=== PATIENT | male | born 1980 | race Caucasian/White ===

== ENCOUNTER 2020-11-30 09:39 | Emergency (ER) | payer OTHER, SELFPAY ==
--- NOTE | ~2020-11-30 | XR_ITS ---
EXAMINATION: XR CHEST CLINICAL INFORMATION: Cough. COMPARISON: Most recent chest radiograph dated 06/30/2018. TECHNIQUE: Frontal view of the chest was obtained. FINDINGS: The lungs are clear. The cardiomediastinal silhouette is normal in size. There is no pleural effusion or pneumothorax. No acute osseous abnormality. XR/XR chest 1V IMPRESSION: No acute cardiopulmonary findings.
[2020-11-30 11:00] VITALS: BP 121/84; PULSE 77; RESP 18; TEMP 36.9; O2SAT 99; BMI 29.0
--- NOTE | 2020-11-30 11:34 | ED.GENADULT ---
HPI - General Adult General Chief complaint: General Medical Stated complaint: fevers chill covid positive Time Seen by Provider: 11/30/20 11:34 History of Present Illness HPI narrative: Patient tested positive for COVID 2 days ago and comes here is he increased body aches and a mild cough, as well as some fatigue No difficulty breathing no headache no neck pain no chest pain no shortness of breath Related Data Allergies Allergy/AdvReac Type Severity Reaction Status Date / Time No Known Allergies Allergy Unverified 01/02/20 17:05 Review of Systems Review of Systems: Positive for body aches cough and fatigue Negatives are no fever no chills no dizziness no weakness no fainting no feeling faint no headache no neck pain no stiff neck no chest pain no shortness of breath no abdominal pain no nausea vomiting or diarrhea no dysuria no skin rash Yes all other systems are reviewed and are negative [facility] Past Medical History Source: nursing notes reviewed Medical History (Updated 11/30/20 @ 12:13 by JELANI Kathleen) No known health problems Social History Social History Advance Directives: No Advance Directives Information Provided: No Physical Exam Vital Signs: Vital Signs: Last Vital Signs Temp 98.5 F 11/30/20 11:00 Pulse 77 11/30/20 11:00 Resp 18 11/30/20 11:00 BP 121/84 11/30/20 11:00 Pulse Ox 99 11/30/20 11:00 Body Mass Index 29.0 General appearance no acute distress The ears are clear with no redness of tympanic membrane or narrowing of canal Sinuses nontender Pharynx there is mild pharyngeal erythema but no exudate, voice is normal there is no swelling there is no drooling, well-hydrated mucous membranes The neck is supple Chest clear to auscultation bilateral Heart no murmur Abdomen soft nontender Extremities full range of motion x4 Skin no rash Course Course Course Narrative: COVID testing was negative, strep test was negative and chest x-ray was negative, patient is well-appearing with normal vitals and is discharged and advised to stay out of work until symptoms are better and COVID testing is negative Discharge Plan Discharge Clinical Impression: COVID-19 Patient Disposition: Home, Self-Care Additional Instructions: You tested positive for COVID-19 which is very contagious Best plan is keep a distance from other people, wear mask any time her around other people You will be off work until all symptoms are gone and a repeat test is negative Return to the ER any time any worse condition or any concerns chest x-ray was normal Stand Alone Forms: Work/School Release Interventions: ED Discharge Assessment Last Done: 11/30/20 12:22 Discharge Date/Time: 11/30/20 12:23
== END 2020-11-30 12:23 | disposition home or self-care (01) ==
PROVIDERS: Emergency Provider Internal Medicine
DX: U07.1 COVID-19 (principal); R50.9 Fever, unspecified
CPT/HCPCS: 71045; 99283

== ENCOUNTER 2023-08-09 09:57 | Emergency (ER) | payer OTHER, SELFPAY ==
--- NOTE | ~2023-08-09 | XR_ITS ---
EXAMINATION: XR LUMBOSACRAL SPINE CLINICAL INFORMATION: Low back pain. COMPARISON: 03/07/2018 TECHNIQUE: Three views of the lumbosacral spine. FINDINGS: There are 5 nonrib-bearing lumbar vertebral bodies. Relative straightening of the lumbar lordosis. There is 5 mm retrolisthesis of L5 on S1 similar to prior. There is 3 mm retrolisthesis of L4 on L5. Vertebral body heights are maintained. Mild intervertebral disc space narrowing at L5-S1. Sacroiliac joints are intact. Scattered pelvic phleboliths. XR/XR lumbar spine 2-3V IMPRESSION: Mild degenerative disc disease at L5-S1.
[2023-08-09 10:17] VITALS: BP 120/75; PULSE 88; RESP 18; TEMP 36.2; O2SAT 100; BMI 31.5
--- NOTE | 2023-08-09 10:43 | ED_ITS ---
HPI - General Adult General Chief complaint: Extremity Injury, Lower Stated complaint: Low Back Injury 08/07/23 Time Seen by Provider: 08/09/23 10:42 Source: patient Mode of arrival: ambulatory Limitations: no limitations History of Present Illness HPI narrative: Patient is a 42 year old assigned male at with no reported medical history presenting to the emergency department today with low back pain. Patient states that he was at work, lifted something heavy, and now has low back pain. Patient states that when the incident occurred, he felt and heard a pop in his back. Patient denies any dizziness, lightheadedness, abdominal pain, nausea, vomiting, fever, chills, blurry vision, double vision, loss of vision, chest pain, difficulty breathing, shortness of breath, night sweats, pain with urination, increased urinary frequency, increased urinary urgency, blood in his urine or stool, syncope or a near syncopal episode, bowel incontinence, bladder incontinence, bowel retention, bladder retention, or any other complaints at this time. Location: back Radiation: non-radiation Relieving factors: none Exacerbating factors: movement Associated symptoms: denies other symptoms Treatments prior to arrival: none Related Data Previous Rx's ?Medication ?Instructions ?Recorded cyclobenzaprine 5 mg tablet 5 mg PO TID PRN back pain 7 days 08/09/23 #21 tabs prednisone 20 mg tablet 20 mg PO DAILY 7 days #7 tabs 08/09/23 Allergies Allergy/AdvReac Type Severity Reaction Status Date / Time No Known Allergies Allergy Verified 08/09/23 10:18 Review of Systems Constitutional: Constitutional: Reports no additional constitutional complaints, Denies chills, Denies fever(s) and Denies night sweats Eyes: Eyes: Reports no additional eye complaints, Denies blurry vision, Denies change in vision, Denies diplopia, Denies eye discharge, Denies loss of vision and Denies eye pain ENT: Denies dizziness Cardiovascular: Cardiovascular: Reports no additional cardiovascular complaints, Denies chest pain, Denies lightheadedness, Denies Loss of Consciousness and Denies dyspnea Respiratory: Respiratory: Reports no additional respiratory complaints and Denies dyspnea Gastrointestinal: Gastrointestinal: Reports no additional gastrointestinal complaints, Denies abdominal pain, Denies melena, Denies hematochezia, Denies change in bowel habits and Denies change in stool character Genitourinary: Genitourinary: Reports no additional male genitourinary complaints, Denies hematuria, Denies oliguria, Denies difficulty urinating, Denies dysuria, Denies urinary frequency, Denies urinary hesitancy, Denies urinary incontinence and Denies urinary urgency Musculoskeletal: Musculoskeletal: Reports no additional musculoskeletal complaints, Reports back pain, Denies numbness and Denies tingling Neurologic: Denies dizziness, Denies loss of vision, Denies numbness and Denies tingling Psychiatric: Psychiatric: Reports no additional psychiatric complaints Endocrine: Endocrine: Reports no additional endocrine complaints Hematologic/Lymphatic: Hematologic/Lymphatic: Reports no additional hematologic/lymphatic complaints Allergic/Immunologic: Allergic/Immunologic: Reports no additional allergic/immunologic complaints [facility] Past Medical History Attestation statement: The following information was validated with the patient. Source: old records reviewed and nursing notes reviewed Medical History No known health problems Social History Social History Advance Directives: No Advance Directives Information Provided: No Do you have a plan to hurt others: No Plan Physical Exam ED Vital Signs: Vital Signs - 24 hr 08/09/23 10:17 08/09/23 11:06 08/09/23 11:30 Temperature 97.1 F 99.0 F 99.0 F Pulse Rate 88 81 81 Respiratory Rate 18 19 19 Blood Pressure 120/75 119/69 119/69 Pulse Oximetry 100 98 98 Oxygen Delivery Method Room Air Room Air Room Air BMI result Body Mass Index 31.5 Const General: cooperative, no acute distress, alert and awake Nutritional Appearance: well nourished Orientation/consciousness: patient oriented x3 Limitations: no limitations [facility] Head: Yes normal to inspection and Yes atraumatic Ears: hearing grossly normal bilaterally and external ears normal General nose exam: Normal external nose present, no nasal discharge noted and no epistaxis Face and sinus: Yes normal facial exam, No abrasion and No laceration Mouth: Normal oral and palatal mucosa present, no drooling and no muffled voice Eyes General: appearance normal, both eyes and all related structures Periorbital: periorbital findings normal Eyelids: Yes eyelids normal Conjunctivae: conjunctivae normal Pupils: Equal, round and reactive pupils present EOM: EOMs intact bilaterally Neck Neck: Yes normal visual inspection, Yes full ROM and Yes no lymphadenopathy Chest Chest palpation & inspection: normal inspection of the chest Resp Effort & Inspection: normal respiratory effort and able to speak in complete sentences GI Inspection: Yes normal to inspection General: Yes no CVA tenderness Back/Spine/Pelvis Back: no CVA tenderness Cervical Spine: normal cervical lordosis and cervical ROM normal Thoracic/Lumbar Spine: thoracic and lumbar spine normal to inspection Pelvis: no pain with anterior-posterior compression Neuro General: patient oriented x3 and moves all extremities Cranial nerves: Yes Equal, round and reactive pupils present Cognition (Neuro): normal cognition Motor exam (neuro): 5/5 motor strength present throughout Sensory Exam: Normal double simultaneous stimulation for sensation Coordination: [id number] test normal Extrem General: Yes normal to inspection, Yes full ROM and Yes capillary refill normal Psych Appearance: grossly normal Mental Status: mental status grossly normal Affect: normal affect Attitude: cooperative Thought process: Normal thought process present Thought content: Normal thought content present Insight: Good insight present (Psych) Medications Administered Discontinued Medications Generic Name Dose Route Start Last Admin Trade Name Mina PRN Reason Stop Dose Admin Cyclobenzaprine HCl 5 mg 08/09/23 11:19 08/09/23 11:24 Cyclobenzaprine Hcl 5 Mg Tablet PO 08/09/23 11:20 5 mg ONCE ONE Administration Ketorolac Tromethamine 15 mg 08/09/23 11:19 08/09/23 11:24 Ketorolac Tromethamine 15 Mg/Ml Vial IM 08/09/23 11:20 15 mg ONCE ONE Administration Medical Decision Making Medical Decision Making [facility] Narrative: Patient is a 42 year old assigned male at with no reported medical history presenting to the emergency department today with low back pain after lifting something heavy at work. Patient's physical exam was unremarkable. Patient's lumbar x-ray showed no acute process. I explained my physical exam findings as well as all test results to the patient. I answered all questions asked by the patient. I stressed the importance of the patient taking his medication as prescribed. I stressed the importance of the patient following up with his primary care provider and given this was a work place injury, work connection. I stressed the importance of the patient returning to the emergency department immediately if his symptoms were to worsen or if he were to develop any dizziness, shortness of breath, difficulty breathing, chest pain, blurry vision, loss of vision, nausea, vomiting, abdominal pain, fever, chills, back pain, or any other complaints. Patient verbalized agreement and understanding with this treatment plan and discharge. Differential Diagnosis Differential Diagnoses: The differential diagnosis associated with the presentation includes Low back pain Low back strain Herniated disc Disc disease Low back sprain Admission/Observation Consideration of admission/observation: Escalation of care including admission/observation considered Patient would have been admitted to the hospital had his work up had any findings where hospital admission was appropriate and his clinical presentation warranted hospital admission. Independent Interpretation I performed an independent interpretation of an: Plain X-Ray Interpretation: My interpretation is in agreement with the radiologist's impression of this imaging study. ------- EXAMINATION: XR LUMBOSACRAL SPINE CLINICAL INFORMATION: Low back pain. COMPARISON: 03/07/2018 TECHNIQUE: Three views of the lumbosacral spine. FINDINGS: There are 5 nonrib-bearing lumbar vertebral bodies. Relative straightening of the lumbar lordosis. There is 5 mm retrolisthesis of L5 on S1 similar to prior. There is 3 mm retrolisthesis of L4 on L5. Vertebral body heights are maintained. Mild intervertebral disc space narrowing at L5-S1. Sacroiliac joints are intact. Scattered pelvic phleboliths. XR/XR lumbar spine 2-3V IMPRESSION: Mild degenerative disc disease at L5-S1. Dictated By: Aubrie Weston MD Signed By: Electronically signed by Aubrie Weston MD 08/09/23 1108 Radiology Impression Discussion of test interpretation with radiology: I have reviewed the radiologist's reading. Prescription Management I considered prescription management with: Pain Medication (patient prescribed pain medication) Discharge Plan Discharge Clinical Impression: Low back pain Patient Disposition: Home, Self-Care Instructions: Back Pain (ED) Additional Instructions: Follow up with your primary care provider. Given this was a work place injury, follow up with work connection. If the pain persists >1 month, follow up with a technical training specialist. Return to the emergency department immediately if your symptoms worsen or if you develop any dizziness, shortness of breath, difficulty breathing, chest pain, blurry vision, loss of vision, nausea, vomiting, abdo calderon pain, fever, chills, back pain, or any other complaints. Prescriptions: New cyclobenzaprine 5 mg tablet 5 mg PO TID PRN (Reason: back pain) 7 Days Qty: 21 0RF prednisone 20 mg tablet 20 mg PO DAILY 7 Days Qty: 7 0RF Referrals: [facility] Family Medicine [Provider Group] (Call to establish and follow up with a primary care provider. If you already have a primary care provider, please follow up with them.) [facility] [Provider Group] [facility] [Provider Group] [facility] [Provider Group] (Call to establish and follow up with a technical training specialist if your pain lasts >1 month.) [facility] [Provider Group] (Call to establish and follow up with work connection given this was a work place injury.) Stand Alone Forms: Work/School Release Interventions: ED Discharge Assessment Last Done: 08/09/23 11:30 Discharge Date/Time: 08/09/23 11:32 Print Language: Slovak
[2023-08-09 11:06] VITALS: BP 119/69; PULSE 81; RESP 19; TEMP 37.2; O2SAT 98
[2023-08-09] MEDS: Ketorolac Tromethamine 15 MG/ML VIAL IM (11:24)
[2023-08-09] MEDS: Cyclobenzaprine HCl 5 MG TABLET PO (11:24)
[2023-08-09 11:30] VITALS: BP 119/69; PULSE 81; RESP 19; TEMP 37.2; O2SAT 98
== END 2023-08-09 11:32 | disposition home or self-care (01) ==
PROVIDERS: Emergency Provider Emergency Medicine
DX: M54.50 Low back pain, unspecified (principal)
CPT/HCPCS: 72100; 96372; 99283; 99284; J1885

== ENCOUNTER 2024-12-06 06:33 | Emergency (ER) | payer OTHER, SELFPAY ==
--- NOTE | ~2024-12-06 | CT_ITS ---
EXAMINATION: CT ABDOMEN AND PELVIS WITH CONTRAST CLINICAL INFORMATION: Left flank pain. COMPARISON: October 20, 2018. TECHNIQUE: Multidetector volumetric images were obtained from the superior aspect of the liver through the pubic symphysis following administration 85 mL of Omnipaque 350 intravenous contrast. Sagittal and coronal reformatted images were obtained on the technologist's workstation. Oral contrast: No This CT examination was performed using dose optimization techniques as appropriate, variously including the following: *Automated exposure control *Adjustment of mA and/or kV according to patient size (this includes techniques or standardized protocols for targeted exams where dose is matched to indication/reason for exam; i.e. extremities or head) *Use of iterative reconstruction technique. DLP: 526 mGy centimeter. FINDINGS: LUNG BASES: Pulmonary patchy groundglass in the periphery of the lower lung lobes. LIVER, GALLBLADDER, AND BILIARY TREE: Liver measures 18 cm. Decreased enhancement near the falciform ligament likely focal fatty infiltration. Punctate calcifications in the periphery of the right hepatic lobe. 2 mm hypodensity in the dome left hepatic lobe too small to be fully characterized. No pericholecystic fluid collection or gallbladder wall thickening. Gallbladder is nondistended. No intrahepatic or extrahepatic biliary ductal dilatation. PANCREAS: No focal mass. No peripancreatic fluid collection. No main pancreatic ductal dilatation. SPLEEN: 8 cm. No focal mass. ADRENAL GLANDS: No nodular lesions. KIDNEYS AND URETERS: Right kidney: Nonobstructing less than 2 mm calculi in the pelvicalyceal system. Subcentimeter cyst throughout the renal cortex. No enhancing mass. No hydronephrosis. Normal enhancement pattern of the renal parenchyma. Left kidney: There is a 2.5 x 2.4 x 3.6 cm heterogeneous mixed density attenuation abnormality in the upper pole which measures 61 Hounsfield units. There is a 1.7 cm hypodensity at the corticomedullary junction of the lateral aspect midportion which measures 40 Hounsfield units. There are a few less than 1 mm nonobstructing calculi in the pelvicalyceal system. There are other less than 1 cm fluid density lesions in the midportion upper pole and lower pole. No hydronephrosis. BLADDER: Fluid-filled nearly collapsed with questionable wall thickening. GASTROINTESTINAL TRACT: Abundant stool throughout the large intestine. No intestinal obstruction pattern. No ascites. No pneumoperitoneum. Appendix is normal. No pneumatosis intestinalis. ABDOMINAL WALL: Small fat-containing umbilical hernia. LYMPH NODES: No mesenteric or retroperitoneal lymphadenopathy. VASCULAR: The main renal vessels are patent. No aneurysm or dissection abdominal aorta. Mixed plaques in the distal abdominal aorta wall. Mixed plaques in the femoral arteries bilaterally. PELVIC VISCERA: Not enlarged. OSSEOUS STRUCTURES: There is a 1 cm lytic lesion right posterior iliac bone and bone marrow inhomogeneity in the bony pelvis. Multilevel marginal osteophyte formation and syndesmophyte formation and decreased intervertebral disc height in the lower thoracic spine and lower lumbar spine. There is a grade 1 retrolisthesis L4-5 and L5-S1 likely degenerative in nature. No acute fracture in the bony pelvis or the coxofemoral joints. CT/CT abdomen pelvis w IV con IMPRESSION: 3.6 cm, heterogeneous enhancing, poorly marginated, mixed density mass at the corticomedullary junction, upper pole left kidney related to the known renal mass. Probable hemorrhagic components/recently bled lesion. No lymphadenopathy. No perinephric/pararenal compartment involvement. No gross vascular involvement. Bilateral nonobstructing nephrolithiasis. 1.7 cm complex cystic lesion midportion of the left kidney. Bilateral renal cysts. Lytic lesion posterior right iliac bone. Fleischner guidelines were followed. Electronically signed by: Andrew Lewis MD 12/06/2024 10:58 AM EDT
[2024-12-06 06:49] VITALS: BP 111/65; PULSE 76; RESP 16; TEMP 36.8; O2SAT 96; BMI 30.1
--- NOTE | 2024-12-06 06:55 | PC.NURSE ---
Pt roomed changed and placed on 1/2 monitor- VSS NAD. States urine normal with no blood or discoloration or urinary SX. Has not taken anything for pain.
--- NOTE | 2024-12-06 07:18 | ED_ITS ---
HPI - General Adult General Chief complaint: Back Pain/Injury Stated complaint: kidney pain Time Seen by Provider: 12/06/24 07:18 History of Present Illness ED Provider: Ismael HORNE narrative: The patient is a 43-year-old male who was diagnosed with a mass in his left kidney thought to be kidney cancer 3 months ago. He had a CT scan at [facility] on 09/05/2024 showing a 3.5 cm enhancing mass within the upper pole cortex of the left kidney suspicious for neoplasia. He has been working with Dr. Ivan of urology in [place] and is scheduled to have surgery in 2 weeks to remove the tumor. The patient works and does a fair amount of lifting at work. Yesterday after work he noticed pain in his left lower back. He says that he has a history of sciatica and he did not feel that this pain was similar to his sciatica pain. He says he also had chills yesterday although no definite fever. No definite sweats. No vomiting. This is not a pain he has experienced before he says. The pain is worse with movements but the patient feels this is different from what he considers typical muscular back pain. Related Data Previous Rx's ?Medication ?Instructions ?Recorded cyclobenzaprine 5 mg tablet 5 mg PO TID PRN back pain 7 days 08/09/23 #21 tabs prednisone 20 mg tablet 20 mg PO DAILY 7 days #7 tab s 08/09/23 ondansetron 4 mg disintegrating 4 mg PO Q6H PRN nausea and 12/06/24 tablet vomiting #10 tabs oxycodone 5 mg tablet 5 mg PO Q6H PRN pain #14 tab s 12/06/24 polyethylene glycol 3350 17 17 g PO DAILY #238 grams 0 12/06/24 gram/dose oral powder (Miralax) Allergies Allergy/AdvReac Type Severity Reaction Status Date / Time No Known Allergies Allergy Verified 12/06/24 06:51 Review of Systems 2 Review of Systems: Yes all other systems are reviewed and are negative [facility] Past Medical History Medical History No known health problems Social History Social History Substance Use Type: Crack/Cocaine Physical Exam ED Vital Signs: Vital Signs - 24 hr 08/22/25 06:49 12/06/24 07:49 12/06/24 08:00 Temperature 98.2 F 98.5 F Pulse Rate 76 72 Respiratory Rate 16 16 16 Blood Pressure 111/65 100/60 Pulse Oximetry 96 100 Oxygen Delivery Method Room Air Room Air 12/06/24 10:00 12/06/24 12:00 12/06/24 12:32 Temperature 98.5 F 98.4 F 98.4 F Pulse Rate 72 82 76 Respiratory Rate 15 16 16 Blood Pressure 118/74 112/70 120/81 Pulse Oximetry 100 98 98 Oxygen Delivery Method Room Air Room Air Room Air BMI result Body Mass Index 30.1 Const Other: The patient is a 43-year-old male who was awake and alert, pleasant and cooperative. He looks mildly uncomfortable but not in acute distress. Orientation/consciousness: patient oriented x3 HENMT Other: The face is symmetrical. ?Mucous membranes moist. Eyes Other: Pupils are round equal, conjunctivae are clear, extraocular movements intact Neck Neck: Yes normal visual inspection and Yes full ROM Resp Effort & Inspection: normal respiratory effort Auscultation: clear to auscultation bilaterally Cardio Rate: regular rate Rhythm: regular rhythm Heart sounds: S1 normal heart sound present and S2 normal heart sound present GI Other: The abdomen is soft and nontender Back/Spine/Pelvis Other: There seems to be some muscular tenderness to the lower back. No definite CVA percussion tenderness. Skin Other: The skin is dry and unremarkable Neuro General: patient oriented x3, gait normal, tone normal, moves all extremities, no focal motor deficits and CN's II-XI intact bilaterally Extrem Other: There is no calf swelling or tenderness. No asymmetry. No peripheral edema. Medications Administered Discontinued Medications Generic Name Dose Route Start Last Admin Trade Name Freq PRN Reason Stop Dose Admin Sodium Chloride 1,000 mls @ 999 mls/hr 12/06/24 07:30 12/06/24 09:35 Ns IV 12/06/24 08:30 Infused .Q1H1M CHANDU Infusion Acetaminophen 1,000 mg in 100 mls @ 400 mls/hr 12/06/24 07:28 12/06/24 08:22 Ofirmev IV 12/06/24 07:42 Infused ONCE ONE Infusion Iohexol 100 ml 12/06/24 10:01 12/06/24 10:01 Iohexol 350 Mg/Ml 100 Ml Infus..Btl IV 12/06/24 10:02 85 ml ONCE ONE Administration Morphine Sulfate 4 mg 12/06/24 07:28 12/06/24 07:49 Morphine Sulfate 4 Mg/Ml Cartridge IVPUSH 12/06/24 07:29 4 mg ONCE ONE Administration Protocol Ondansetron HCl 4 mg 12/06/24 07:28 12/06/24 07:48 Ondansetron Hcl 4 Mg/2 Ml Vial IVPUSH 12/06/24 07:29 4 mg ONCE ONE Administration Oxycodone HCl 5 mg 12/06/24 12:14 12/06/24 12:27 Oxycodone Hcl Immed Release 5 Mg Tablet PO 12/06/24 12:15 5 mg ONCE ONE Administration Medical Decision Making Medical Decision Making [facility] Narrative: The patient is a very pleasant 43-year-old male who was recently found to have a left renal tumor considered to be malignant. He is scheduled to have surgery in under 2 weeks at [facility]. He presents today with back pain that started yesterday after work. The patient does not appear toxic. He is neurologically intact. There was no sign of urinary infection or other infectious process associated with this pain. A CT with IV contrast was done today that again demonstrates the tumor. There is a possibility that there might be some hemorrhage within the tumor but we do not have the old imaging to compare. No other definite acute findings are found in the ER today. I do not have an indication for hospitalizing the patient. The patient will be given oxycodone for pain. He was given a copy of the disc of his CAT scan. He will be discharged to follow up with his urologist next week to discuss whether this new pain will affect anything to do with his planned surgery. Lab Data 12/06/24 07:51 12/06/24 07:51 Labs: Lab Results 12/06/24 12/06/24 Range/Units 07:51 09:09 WBC 10.9 H (4.8-10.8) X10*3/uL RBC 4.08 L (4.60-5.80) X10*6/uL Hgb 12.7 L (14.0-18.0) g/dl Hct 38.3 L (42.0-52.0) % MCV 93.9 (80.0-98.0) fL MCH 31.1 (27.0-33.0) pg MCHC 33.2 (31.0-36.0) g/dl RDW 13.9 (11.0-16.0) % Plt Count 275 (160-400) X10*3/uL MPV 9.4 (9.4-12.4) fL Immature Gran % (Auto) 0.4 (0.0-0.4) % Neut % (Auto) 66.5 (45-73) % Lymph % (Auto) 21.1 (20-40) % [place] % (Auto) 8.7 (2-11) % Eos % (Auto) 2.4 (0-4) % Baso % (Auto) 0.9 (0-2) % Lymph # (Auto) 2.3 (1.2-4.9) X10*3/uL [place] # (Auto) 1.0 (0.1-1.2) X10*3/uL Eos # (Auto) 0.3 (0.0-0.4) X10*3/uL Baso # (Auto) 0.1 (0.0-0.2) X10*3/uL Abs Immat Gran (auto) 0.04 H (0.00-0.03) X10*3/uL Absolute Neuts (auto) 7.2 (2.0-8.3) x10*3/uL Absolute Nucleated RBC 0.000 (0.0-0.012) X10*3/uL Nucleated RBC % (auto) 0.0 (0.0-0.2) /100WBC Sodium 142 (135-145) mmol/L Potassium 4.3 (3.3-5.1) mmol/L Chloride 107 (96-108) mmol/L Carbon Dioxide 28 (22-29) mmol/L Anion Gap 11 L (12-20) BUN 11 (9-16) mg/dL Creatinine 1.09 (0.5-1.4) mg/dL Estim Creat Clear Calc 90.2 Estimated GFR > 60 Random Glucose 60 (60-115) mg/dL Calcium 9.2 (8.4-10.2) mg/dL Total Bilirubin 0.3 (0.0-1.0) mg/dL Direct Bilirubin 0.1 (0.0-0.5) mg/dL AST 21 (5-37) U/L ALT 14 (0-40) U/L Alkaline Phosphatase 55 (39-117) U/L C-Reactive Protein < 0.10 (< or = 0.50) mg/dL Total Protein 6.6 (6.5-8.0) g/dL Albumin 4.0 (3.5-5.0) g/dL Lipase 211 H (8-78) U/L Urine Color Yellow Urine Appearance Clear Urine pH 7.5 (5.0-9.0) Ur Specific [place] 1.015 (1.005-1.025) Urine Protein Negative (Neg-Trace) mg/dL Urine Glucose (UA) Negative (Negative) mg/dL Urine Ketones Negative (Negative) mg/dL Urine Blood Small (1+) H (Negative) Urine Nitrite Negative (Negative) Ur Leukocyte Esterase Negative (Negative) Urine RBC 6-10 H (0-2) /HPF Urine WBC 0-5 (0-5) /HPF Ur Squamous Epith Cells 0-2 (0-2) /HPF Urine Bacteria None Seen (None Seen) Hyaline Casts 0-2 (0-2) /LPF Discharge Plan Discharge Clinical Impression: Acute left-sided back pain, Neoplasm of left kidney Patient Disposition: Home, Self-Care Additional Instructions: Your evaluation in the emergency room today shows no sign of infection. The CAT scan of your abdomen and pelvis shows that there might has been some bleeding within the tumor in your left kidney but it is not showing any other concerning findings. I have sent a prescription for the medication oxycodone which you may use as needed for pain. You may also use [id number] acetaminophen (Tylenol). Additionally I have sent a prescription for the nausea medication ondansetron. You may use this if you feel nausea. Additionally I have sent a prescription for polyethylene glycol (also known as MiraLax). I would recommend taking a dose of the polyethylene glycol every day to help soften your stools. This is especially important if you will be taking oxycodone for pain because oxycodone can be constipating. You has been given a disc of your CAT scan. Please contact Dr. Ivan and let him know you were having this pain. My hope is that he will be able to get you seen before the surgery to compare the CAT scans and make sure he feels comfortable with the current plan. Return to the emergency room if significantly worse or follow up at the [facility] Emergency room instead. Prescriptions: New ondansetron 4 mg tablet,disintegrating 4 mg PO Q6H PRN (Reason: nausea and vomiting) Qty: 10 0RF oxycodone 5 mg tablet 5 mg PO Q6H PRN (Reason: pain) Qty: 14 0RF Rx Instructions: Partial Fill upon patient request. polyethylene glycol 3350 [Miralax] 17 gram/dose powder 17 g PO DAILY Qty: 238 0RF No Action cyclobenzaprine 5 mg tablet 5 mg PO TID PRN (Reason: back pain) 7 Days Qty: 21 0RF prednisone 20 mg tablet 20 mg PO DAILY 7 Days Qty: 7 0RF Referrals: Song Ivan MD [Physician, Urology] Stand Alone Forms: Work/School Release Interventions: ED Discharge Assessment Last Done: 12/06/24 12:32 Discharge Date/Time: 12/06/24 12:33 Print Language: Persian
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
[2024-12-06 07:49] VITALS: RESP 16
[2024-12-06 07:55] LABS: MANUAL DIFF FLAG NO
[2024-12-06 07:57] LABS: Hematocrit 38.3 % (42.0-52.0); Hemoglobin 12.7 g/dl (14.0-18.0); Imm Gran Abs Auto 0.04 X10*3/uL (0.00-0.03); Imm Gran Pct Auto 0.4 % (0.0-0.4); Lymphocytes Absolute Auto 2.3 X10*3/uL (1.2-4.9); Mean Corpuscular HGB Conc 33.2 g/dl (31.0-36.0); Mean Corpuscular Hemoglobin 31.1 pg (27.0-33.0); Mean Corpuscular Volume 93.9 fL (80.0-98.0); NRBC Abs Auto 0.000 X10*3/uL (0.0-0.012); NRBC Pct Auto 0.0 /100WBC (0.0-0.2); Platelet Count 275 X10*3/uL (160-400); Red Blood Count 4.08 X10*6/uL (4.60-5.80); White Blood Count 10.9 X10*3/uL (4.8-10.8)
[2024-12-06 08:00] VITALS: BP 100/60; PULSE 72; RESP 16; TEMP 36.9; O2SAT 100
[2024-12-06 08:12] LABS: Alanine Aminotransferase 14 U/L (0-40); Albumin Level 4.0 g/dL (3.5-5.0); Alkaline Phosphatase 55 U/L (39-117); Anion Gap 11 (12-20); Aspartate Amino Transferase 21 U/L (5-37); Blood Urea Nitrogen 11 mg/dL (9-16); Calcium 9.2 mg/dL (8.4-10.2); Carbon Dioxide 28 mmol/L (22-29); Chloride 107 mmol/L (96-108); Creatinine Clr Calc Pharmacy 90.2; Estimated Glomerular Filt Rate > 60; Lipase 211 U/L (8-78); Potassium 4.3 mmol/L (3.3-5.1); Sodium 142 mmol/L (135-145); Total Protein 6.6 g/dL (6.5-8.0)
--- NOTE | 2024-12-06 09:18 | PC.NURSE ---
Provider in to examine pt FB removal.
[2024-12-06 09:19] LABS: Appearance Urine Clear; Glucose Urine UA Negative (Negative); PH 7.5 (5.0-9.0); Specific Gravity - Urine 1.015 (1.005-1.025); UMIC TRIGGER UACC YES
[2024-12-06 10:00] VITALS: BP 118/74; PULSE 72; RESP 15; TEMP 36.9; O2SAT 100
[2024-12-06] MEDS: iohexoL 350 MG/ML 100 ML INFUS..BTL IV (10:01)
[2024-12-06 12:00] VITALS: BP 112/70; PULSE 82; RESP 16; TEMP 36.9; O2SAT 98
[2024-12-06] MEDS: oxyCODONE HCl Immed Release 5 MG TABLET PO (12:27)
[2024-12-06 12:32] VITALS: BP 120/81; PULSE 76; RESP 16; TEMP 36.9; O2SAT 98
== END 2024-12-06 12:33 | disposition home or self-care (01) ==
PROVIDERS: Emergency Provider Emergency Medicine; PCP Family Medicine
DX: M54.9 Dorsalgia, unspecified (principal); D49.512 Neoplasm of unspecified behavior of left kidney
CPT/HCPCS: 36415; 74177; 80048; 80076; 81001; 83690; 85025; 86140; 96361; 96374; 96375; 99284; J0131; J2270; J2405; Q9967

== ENCOUNTER → 2024-12-06 09:27 | Outpatient (BNV) | payer OTHER, SELFPAY | PROVIDERS: Emergency Provider Emergency Medicine; PCP Family Medicine; Visit Provider Radiology Diagnostic Radiology | DX: N20.0 Calculus of kidney (principal); N28.1 Cyst of kidney, acquired; M89.9 Disorder of bone, unspecified | CPT/HCPCS: 74177 ==

== ENCOUNTER 2025-01-31 20:52 | Emergency (ER) | payer OTHER, SELFPAY ==
--- NOTE | ~2025-01-31 | US_ITS ---
CLINICAL HISTORY: left side pain r o torsion US Scrotum with Doppler Comparison: CT/REG/SR - CT ABDOMEN PELVIS WO IV CON - 01/31/25 23:13 EDT Findings: Right testicle normal echotexture, measuring 5.0 x 2.5 x 4.1 cm. Left testicle normal echotexture, measuring 5.2 x 2.6 x 3.1 cm. Color Doppler and arterial/venous spectral tracings of both testicles within normal limits. Normal epididymides. No significant hydrocele or varicocele identified IMPRESSION: 1. No acute abnormality identified. Negative for testicular torsion. This document has been electronically signed by: Rene Haines MD on 02/01/2025 00:35:55
--- NOTE | ~2025-01-31 | CT_ITS ---
CLINICAL HISTORY: left flank pain CT abdomen and pelvis without contrast Comparison: CT/REG/SR - CT ABDOMEN PELVIS WITH IV CONTRAST - 12/06/24 09:48 EDT Findings: CT abdomen: Minor linear atelectasis within the lower lobes bilaterally. No focal areas of consolidation. No pleural effusion or pneumothorax. No acute bony abnormality. Unchanged 4 mm calcification within the superior right lobe of the liver. Unenhanced liver is otherwise unremarkable. Unenhanced spleen is unremarkable. No discrete pancreatic lesion identified on the unenhanced exam. Gallbladder is contracted. Adrenal glands are unremarkable. Mild left hydronephrosis with left perinephric stranding. Curvilinear hyperdensity along the lateral aspect of the upper pole of the left kidney suggesting prior surgery and partial nephrectomy. No stones are seen within the left ureter. There are several vascular calcifications within the pelvis adjacent to the left ureter. However, these are not within the ureter. Several 2-3 mm stones are seen within the right kidney. No hydronephrosis or perinephric stranding. No right ureteral calculi. Moderate ingested contents within the stomach. No dilated small bowel. CT pelvis: Appendix is normal. Eevi-zw-mrbwvopu stool throughout the colon. No colonic wall thickening. Urinary bladder is moderately distended. No bladder calculi. IMPRESSION: 1. Mild left hydronephrosis with left perinephric stranding. No stones are seen within the left kidney or left ureter. Therefore, this may be related to recent passage of a calculus or ascending urinary tract infection. Clinical correlation advised. 2. Nonobstructing right renal calculi. This document has been electronically signed by: Isiah Hardin MD on 02/01/2025 00:12:36
[2025-01-31 21:00] VITALS: BP 133/67; PULSE 97; RESP 20; TEMP 36.9; O2SAT 100; BMI 28.2
[2025-01-31 21:13] LABS: MANUAL DIFF FLAG NO
[2025-01-31 21:15] LABS: Hematocrit 41.9 % (42.0-52.0); Hemoglobin 13.5 g/dl (14.0-18.0); Imm Gran Abs Auto 0.04 X10*3/uL (0.00-0.03); Imm Gran Pct Auto 0.3 % (0.0-0.4); Lymphocytes Absolute Auto 3.8 X10*3/uL (1.2-4.9); Mean Corpuscular HGB Conc 32.2 g/dl (31.0-36.0); Mean Corpuscular Hemoglobin 30.3 pg (27.0-33.0); Mean Corpuscular Volume 94.2 fL (80.0-98.0); NRBC Abs Auto 0.000 X10*3/uL (0.0-0.012); NRBC Pct Auto 0.0 /100WBC (0.0-0.2); Platelet Count 347 X10*3/uL (160-400); Red Blood Count 4.45 X10*6/uL (4.60-5.80); White Blood Count 12.1 X10*3/uL (4.8-10.8)
[2025-01-31 21:30] LABS: Alanine Aminotransferase 21 U/L (0-40); Albumin Level 4.6 g/dL (3.5-5.0); Alkaline Phosphatase 71 U/L (39-117); Anion Gap 11 (12-20); Aspartate Amino Transferase 15 U/L (5-37); Blood Urea Nitrogen 16 mg/dL (9-16); Calcium 9.4 mg/dL (8.4-10.2); Carbon Dioxide 27 mmol/L (22-29); Chloride 107 mmol/L (96-108); Creatinine Clr Calc Pharmacy 69.9; Estimated Glomerular Filt Rate 57; Lipase 54 U/L (8-78); Potassium 4.6 mmol/L (3.3-5.1); Sodium 140 mmol/L (135-145); Total Protein 7.6 g/dL (6.5-8.0)
--- OUTSIDE RECORDS SUMMARY | 2025-01-31 22:25 | XMS_ITS | Clinical Summary ---
Author Organization [facility] Address [address] [place] [address] Phone Care Team Providers Care Management Tech Name Role Phone Sam Carreon MD Primary Care Provider Allergies No known active allergies Medications gabapentin (NEURONTIN) 800 mg tablet Take 1 tablet (800 mg total) by mouth at bedtime. 90 each 1 11/14/2024 Active Active Problems Problem Noted Date Diagnosed Date Prediabetes 09/04/2024 Chronic low back pain with left-sided sciatica 0 05/18/2022 Epididymal mass 10/30/2018 Overview (01/12/2024): Ultrasound October 2018 Urgent referral placed to urology. Obesity (BMI 30-39.9) 10/30/2018 Cigarette smoker 05/04/2016 Encounters Date Type Department Care Team Description 01/08/2025 Telephone Adult Medicine [address] [phone] Sam Carreon MD 11/14/2024 10:00 AM EDT Consult Adult Medicine [address] [phone] Sam Carreon MD Pre-op examination (Primary Dx); Left renal mass; Atypical mole 11/13/2024 8:57 AM EDT - 11/13/2024 11:59 PM EDT Hospital Encounter Radiology Department - [place] [address] [place] [address] Left kidney mass Discharge Disposition: Home or Self Care 11/05/2024 Telephone Adult Medicine [facility] [place] [address] [place] [address] Sam Carreon MD 11/04/2024 7:35 AM EDT Anesthesia Event [facility] OR [address] [place] [phone] Ghulam Medina MD 11/04/2024 7:30 AM EDT - 11/04/2024 9:00 AM EDT Surgery [facility] OR [address] [place] [phone] Ernesto Vega MD CYSTOSCOPY URETEROSCOPY LASER LITHOTRIPSY AND STENT [50726 (CPT )] 11/04/2024 6:10 AM EDT - 11/04/2024 10:42 AM EDT Hospital Encounter [facility] OR [address] [place] [phone] Ernesto Vega MD Discharge Disposition: Home or Self Care from Last 3 Months Immunizations Immunization Administration Dates Next Due Tdap Tetanus diptheria acell ular pertussis (Boostrix; Adacel) 7yo and older 05/04/2016 Surgical History Surgery Date Site/Laterality Comments OTHER SURGICAL HISTORY PROCEDURE: DENIES PREVIOUS SURGERY Medical History Medical History Date Comments Kidney stones DX:Kidney stones Obesity (BMI 30-39.9) 10/30/2018 DX:Obesity (BMI 30-39.9) Epididymal mass 10/30/2018 DX:Epididymal ma ss; COMMENT: Ultrasound October 2018 Urgent referral placed to urology. Family History Medical History Relation Name Comments Hypertension Mother diabetes Lung cancer Sister 1 smoker Other: HIV Sister 1 Throat cancer Sister 1 Relation Name Status Comments Mother Sister 1 Sister 2 Social History Tobacco Use Types Packs/Day Years Used Date Smoking Tobacco: Every Day Cigarettes 0.5 0.8 Started: 2024 Smokeless Tobacco: Never Tobacco Cessation:Ready to Q uit: Not Asked; Counseling Given: Not Answered Alcohol Use Standard Drinks/Week Comments Not Currently [...] care for your loved ones. For example, early childhood coordinator or elderly care for an older adult? [...] Date Recorded What is your living situation? Unrecognized valu e 11/14/2024 Interpersonal Safety Answer Date Record ed Physical Abuse Unrecognized value 11/04/2024 Verbal Abuse Unrecognized value 11/04/2024 Sex and Gender Information Value Date Recorded Sex Assigned at Not on file Legal Sex Male 12:22 AM EST Gender Identity Male 02/16/2024 2:49 PM EDT Sexual Orientation Not on file Obstetrics History Last Filed Vital Signs Vital Sign Reading Time Taken Comments Blood Pressure 106/68 11/14/2024 9:55 AM EDT Pulse 78 11/14/2024 9:55 AM EDT Temperature 36.7 C (98 F) 11/14/2024 9:55 AM EDT Respiratory Rate 16 11/14/2024 9:55 AM EDT Oxygen Saturation 98% 11/14/2024 9:55 AM EDT Inhaled Oxygen Concentration - - Weight 87 kg (191 lb 12.8 oz) 11/14/2024 9:55 AM EDT Height 170.2 cm (5' 7 ) 11/14/2024 9:55 AM EDT Body Mass Index 30.04 11/14/2024 9:55 AM EDT Plan of Treatment Upcoming Encounters Date Type Department Care Team (Late st Contact Info) Description 02/10/2025 8:00 AM EDT Office Visit Adult Medicine [address] [phone] Essie Brewer PA [address] [place], [place] Health Maintenance Due Date Last Done Comments Colorectal Cancer Screening: Colonoscopy 1980 Hepatitis B Vaccines (1 of 3 - 19+ 3-dose series) 1997 Pneumococcal Vaccine: Pediat rics (0 to 5 Years) and At-Risk Patients (6 to 49 Years) (1 of 2 - PCV) 1997 Cholesterol Screening (Lipid Panel) 03/20/2022 HIV Screening 03/20/2022 Hepatitis C Screening 03/20/2022 COVID-19 Vaccine (1 - 2023-2 5 season) 2024 Influenza Vaccine (#1) 2024 Social Influencers of Health Screening 11/14/2025 11/14/2024 DTaP,Tdap,and Td Vaccines (2 - Td or Tdap) 05/04/2026 05/04/2016 RSV Immunization Adult Patie nts (1 - 1-dose 75+ series) 2053 Depression Screening Completed 11/14/2024 HIB Vaccines Aged Out No longer eligi ble based on patient's age to complete this topic HPV Vaccines Aged Out No longer eligi ble based on patient's age to complete this topic Hepatitis A Vaccines Aged Out No long er eligible based on patient's age to complete this topic IPV Vaccines Aged Out No longer eligi ble based on patient's age to complete this topic MMR Vaccines Aged Out No longer eligi ble based on patient's age to complete this topic Meningococcal ACWY Vaccine Aged Out N o longer eligible based on patient's age to complete this topic Meningococcal B Vaccine Aged Out No l onger eligible based on patient's age to complete this topic RSV Immunization Patients Un bibiana 20 months Aged Out No longer eligible b ased on patient's age to complete this topic Varicella Vaccines Aged Out No longer eligible based on patient's age to complete this topic Medical Devices Implanted Type Area [employer]in [employer]er Device Identifier Shelf Expiration Date Model / Serial / Lot Stent Uret [id number] Stretch W/O Gw - Sn/A - [id number] Implanted:Qty: 1 on 11/04/2024 by Ernesto Vega MD at [facility] Stents Left: Ureter [employer]GYN[employer]OLG Y [id number] 60 / N/A / [id number] Procedures Procedure Name Priority Date/Time Associated Diagnosis Comments ECG 12-LEAD TRACING ONLY Routine 11/14/2024 12:48 PM EDT Pre-op examination ECG 12-LEAD Routine 11/14/2024 10:56 AM EDT MR ABDOMEN WO AND W CONTRAST Routine 11/13/2024 10:07 AM EDT Left kidney mass OXYGEN THERAPY, ADULT Routine 11/04/2024 8:30 AM EDT OXYGEN THERAPY, ADULT Routine 11/04/2024 8:30 AM EDT XR UROGRAM RETROGRADE Routine 11/04/2024 8:22 AM EDT TH AN LMA(NO CHARGE) Routine 11/04/2024 8:06 AM EDT NC CYSTO W URETEROSCOPY/PYELOS COPY W LITHOTRIPSY INCL INDWELLING URTRL STNT 11/04/2024 7:38 AM EDT Calculus of kidney Case Notes C-ARM, HOLMIUM from Last 3 Months Results * ECG 12 lead Tracing Only (11/14/2024 12:48 PM EDT) Sam Carreon MD ECG ORDERABLES Final Result * ECG 12 lead (11/14/2024 10:56 AM EDT) Historical Provider ECG ORDERABLES Final Res ult * MR Abdomen wo and w Contrast (11/13/2024 10:07 AM EDT) Anatomical Region Laterality Modality Body Magnetic Resonan ce 11/13/2024 10:0 9 AM EDT Impressions 11/14/2024 2:31 PM EDT 2 adjacent suspicious enhancing left renal masses. Urology consultation is suggested. -------- FINAL REPORT -------- Dictated By: Gaby Menard Dictated Date: 11/13/2024 10:09 ET Assigned Physician: Gaby Menard Reviewed and Electronically Signed By: Gaby Menard Signed Date: 11/14/2024 14:31 ET Workstation ID: [id number] Transcribed By: Self Edit Transcribed Date: 11/13/2024 10:41 ET Narrative 11/14/2024 2:31 PM EDT MRI ABDOMEN WITH AND WITHOUT CONTRAST HISTORY: Renal mass suspected. Suspicion for heterogeneous solid mass in the midpole. Technique: Multiplanar and multi sequential MR imaging of the abdomen pre and postcontrast per department protocol for renal mass. Delayed sequences at 100 seconds and 3 minutes were obtained. The patient received 17 cc Dotarem IV. PRIOR: Retroperitoneal ultrasound 08/13/2024. CT abdomen pelvis without contrast 08/17/2022. FINDINGS: Liver: has a normal appearance, with no mass lesions seen. No intrahepatic biliary dilatation is seen. No calculi are seen within the extra- or intra-hepatic biliary system. Gallbladder: Unremarkable. Bile ducts: Common bile duct measures millimeters in diameter. Pancreatic duct has a normal course and caliber. Pancreas: Unremarkable. Spleen: Unremarkable. Adrenal glands: Unremarkable. Kidneys: There are subcentimeter cysts of the right kidney. There are several small cysts of the left kidney. However, there are 2 adjacent suspicious lesions of the midpole of the left kidney. The more anterior lesion measures 2.5 x 2.4 x 2.9 cm and demonstrates heterogeneous and increased T2 signal. The more posterior and lateral lesion measures 2.4 x 2.1 x 2.1 cm and demonstrates T2 hyperintensity in the anterior aspect of the lesion in decreased T2 signal in the posterior aspect of the lesion. Both of these lesions demonstrate progressive enhancement. Stomach and visualized bowel: Unremarkable. Mesentery: Normal. Lymph nodes: Unremarkable . Vascular structures: Unremarkable. Free fluid: None. Abdominal wall: Unremarkable. Bones: Unremarkable . Lung bases: Clear. Procedure Note Gaby Menard MD - 11/14/2024 MRI ABDOMEN WITH AND WITHOUT CONTRAST HISTORY: Renal mass suspected. Suspicion for heterogeneous solid mass inthe midpole. Technique: Multiplanar and multi sequential MR imaging of the abdomen preand postcontrast per department protocol for renal mass. Delayedsequences at 100 seconds and 3 minutes were obtained. The patient [id number] cc Dotarem IV. PRIOR: Retroperitoneal ultrasound 08/13/2024. CT abdomen pelvis withoutcontrast 08/17/2022. FINDINGS: Liver: has a normal appearance, with no mass lesions seen. Nointrahepatic biliary dilatation is seen. No calculi are seen within theextra- or intra-hepatic biliary system. Gallbladder: Unremarkable. Bile ducts: Common bile duct measures millimeters in diameter.Pancreatic duct has a normal course and caliber. Pancreas: Unremarkable. Spleen: Unremarkable. Adrenal glands: Unremarkable. Kidneys: There are subcentimeter cysts of the right kidney. There areseveral small cysts of the left kidney. However, there are 2 adjacentsuspicious lesions of the midpole of the left kidney. The more anteriorlesion measures 2.5 x 2.4 x 2.9 cm and demonstrates heterogeneous andincreased T2 signal. The more posterior and lateral lesion measures 2.4 x2.1 x 2.1 cm and demonstrates T2 hyperintensity in the anterior aspect ofthe lesion in decreased T2 signal in the posterior aspect of the lesion.Both of these lesions demonstrate progressive enhancement. Stomach and visualized bowel: Unremarkable. Mesentery: Normal. Lymph nodes: Unremarkable . Vascular structures: Unremarkable. Free fluid: None. Abdominal wall: Unremarkable. Bones: Unremarkable . Lung bases: Clear. IMPRESSION: 2 adjacent suspicious enhancing left renal masses. Urology consultation issuggested. -------- FINAL REPORT -------- Dictated By: Gaby Menard Dictated Date: 11/13/2024 10:09 ET Assigned Physician: Gaby Menard Reviewed and Electronically Signed By: Gaby Menard Signed Date: 11/14/2024 14:31 ET Workstation ID: [id number] Transcribed By: Self Edit Transcribed Date: 11/13/2024 10:41 ET us Essie Osman PALOMARES IMLiliana MRI PROCEDURES Final Result * XR Urogram Retrograde (11/04/2024 8:22 AM EDT) Anatomical Region Laterality Modality Body Radio Fluoroscop y 11/04/2024 8:30 AM EDT Narrative 11/04/2024 8:30 AM EDT Fluoroscopic spot radiographs obtained during a left endourologic procedure are submitted. No radiologist consultation was requested or provided during this procedure and there is no radiologist professional charge. This report is generated for documentation purposes only. The dose-area product for this procedure was 2.5761 Gy*cm2. PQRI CPT II G9500 -------- FINAL REPORT -------- Dictated By: Arnoldo Rangel Dictated Date: 11/04/2024 08:30 ET Assigned Physician: Arnoldo Rangel Reviewed and Electronically Signed By: Arnoldo Rangel Signed Date: 11/04/2024 08:30 ET Workstation ID: [id number] Transcribed By: Self Edit Transcribed Date: 11/04/2024 08:30 ET Procedure Note Arnoldo Rangel MD - 11/04/2024 Fluoroscopic spot radiographs obtained during a left endourologicprocedure are submitted. No radiologist consultation was requested orprovided during this procedure and there is no radiologist professionalcharge. This report is generated for documentation purposes only. The dose-area product for this procedure was 2.5761 Gy*cm2. PQRI CPT II G9500 -------- FINAL REPORT -------- Dictated By: Arnoldo Rangel Dictated Date: 11/04/2024 08:30 ET Assigned Physician: Arnlodo Rangel Reviewed and Electronically Signed By: Arnoldo Rangel Signed Date: 11/04/2024 08:30 ET Workstation ID: [id number] Transcribed By: Self Edit Transcribed Date: 11/04/2024 08:30 ET us Ernesto Vega MD IMG FLUOROSCOPY PROCEDURES Final Result * TH AN LMA(NO CHARGE) (11/04/2024 8:06 AM EDT) Narrative Alexia Haynes CRNA - 11/04/2024 8:06 AM EDT Alexia Haynes CRNA 11/04/2024 8:07 AM General Information and Staff Patient location during procedure: OR Performed by: Alexia Haynes CRNA Authorized by: Ghulam Medina MD Intubation Additional Comments Gauze bite block Airway not difficult Urgency: elective Final Airway Details LMA Size: 4 LMA Type: LMA Seal Pressure: Final airway type: LMA Indications and Patient Condition Indications for airway management: anesthesia Preoxygenated: yes Soft Tissue Damage: No Dentition Unchanged: Yes Patient position: neutral Mask difficulty assessment: 1 - vent by mask us Ghulam Medina MD ANESTHESIA ORDERABLES Final Re sult from Last 3 Months Insurance [employer] Care Teams Management Tech Relationship Specialty Start Date End Date Sam Carreon MD [address] [place] [phone] PCP - General 05/12/22
--- OUTSIDE RECORDS SUMMARY | 2025-01-31 22:25 | XMS_ITS | Encounter Summary ---
Author Organization [facility] Address [address] [place] [address] Care Team Providers Care Ore Buyer Name Role Phone Savannah Rosales MD Primary Care Provider Unavail able Drake Carter MD Primary Care Provider [phone] Sam Carreon MD Primary Care Provider Encounter Details Date Type Department Care Team Description 11/21/2018 Release of Information Medical Records [address] [place] [id number] Abstract, Provider Social History Tobacco Use Types Packs/Day Years Used Date Smoking Tobacco: Every Day Cigarettes Smokeless Tobacco: Never Alcohol Use Standard Drinks/Week Comments Yes 0 (1 standard drink = 0.6 oz pur e alcohol) social Sex Assigned at Date Recorded Not on file Job Start Date Occupation Industry Not on file Not on file Not on file documented as of this encounter Plan of Treatment Not on file documented as of this encounter Visit Diagnoses Not on filedocumented in this encounter Care Teams Ore Buyer Relationship Specialty Start Date End Date Savannah Rosales MD PCP - General Internal Medicine 04/19/16 05/27/21 Drake Carter MD [address] [place] [id number] PCP - General Internal Medicine 05/28/21 05/11/22 Sam Carreon MD [address] [place] [phone] PCP - General Internal Medicine 05/12/22 documented as of this encounter
--- OUTSIDE RECORDS SUMMARY | 2025-01-31 22:25 | XMS_ITS | Encounter Summary ---
Author Organization [facility] Address [address] [place] [address] Care Team Providers Care Motorcycle Delivery Driver Name Role Phone Sam Carreon MD Primary Care Provider Encounter Details Date Type Department Care Team (Late st Contact Info) Description 09/13/2024 Lab Requisition [facility] - Main Lab [address] [facility] [place] [address] Song Ivan MD [address] [place] [address] Urinary tract infection, site not specified; Calculus of kidney Social History Tobacco Use Types Packs/Day Years Used Date Smoking Tobacco: Every Day Smokeless Tobacco: Never Alcohol Use Standard Drinks/Week Comments Yes 0 (1 standard drink = 0.6 oz pur e alcohol) Sex and Gender Information Value Date Recorded Sex Assigned at Not on file Legal Sex Male 12:22 AM EST Gender Identity Male 02/16/2024 2:49 PM EDT Sexual Orientation Not on file documented as of this encounter Plan of Treatment Upcoming Encounters Date Type Department Care Team (Late Contact Info) Description 02/10/2025 8:00 AM EDT Office Visit Adult Medicine [address] [phone] Essie Brewer PA [address] [place] [address] documented as of this encounter Procedures Procedure Name Priority Date/Time Associated Diagnosis Comments COMPLETE BLOOD COUNT Routine 09/13/2024 11:12 AM EDT Urinary tract infection, site not specified Calculus of kidney documented in this encounter Results * (ABNORMAL) Complete blood count (09/13/2024 11:12 AM EDT) WBC 13.1(H) 4.8 - 10.8 K/mcL LAB HEMETOLOGY METHOD 09/13/2024 2:32 PM EDT [facility] RBC 4.60 4.50 - 5.50 M/mcL LAB HEMETOLOGY METHOD 09/13/2024 2:32 PM T [facility] Hemoglobin 14.0 13.5 - 17.5 g/dL LAB HEMETOLOGY METHOD 09/13/2024 2:32 PM [facility] Hematocrit 44.0 42.0 - 54.0 % LAB HEMETOLOGY METHOD 09/13/2024 2:[facility] MCV 95.7 79.0 - 98.0 FL LAB HEMETOLOGY METHOD 09/13/2024 2:32 PM [facility] MCH 30.4 27.0 - 32.0 pcg LAB HEMETOLOGY METHOD 09/13/2024 2:32 PM [facility] MCHC 31.8(L) 32.0 - 37.0 g/dL LAB HEMETOLOGY METHOD 09/13/2024 2:32 PM [facility] RDW 13.5 11.0 - 15.0 % LAB HEMETOLOGY METHOD 09/13/2024 2:32 PM [facility] Platelets 359 130 - 400 K/mcL LAB HEMETOLOGY METHOD 09/13/2024 2:32 PM [facility] MPV 10.1 7.0 - 11.0 FL LAB HEMETOLOGY METHOD 09/13/2024 2:32 PM EDT [facility] NRBC 0.0 <1.0 % LAB HEMETOLOGY METHOD 09/13/2024 2:32 PM EDT [facility] NRBC Absolute 0.00 <0.10 K/mcL LAB HEMETOLOGY METHOD 09/13/2024 2:32 PM EDT [facility] Blood Venous blood specimen / Unknown 09/13/2024 11:12 AM EDT 09/13/2024 2:09 PM EDT us Song Ivan MD LAB BLOOD ORDERABLES Final Result [facility] [address] [place] [address], documented in this encounter Visit Diagnoses Diagnosis Urinary tract infection, site not specified Calculus of kidney documented in this encounter Care Teams Motorcycle Delivery Driver Relationship Specialty Start Date End Date Sam Carreon MD [address] [place] [address] PCP - General 05/12/22 documented as of this encounter
--- OUTSIDE RECORDS SUMMARY | 2025-01-31 22:25 | XMS_ITS | Encounter Summary ---
Author Organization [facility] Address [address] [place] [address] Care Team Providers Care Slasher Sawyer Name Role Phone Sam Carreon MD Primary Care Provider Encounter Details Date Type Department Care Team (Late Contact Info) Description 08/30/2024 Lab Requisition [facility] - Main Lab [address] [facility] [place] [address] Song Ivan MD [address] [place] [address] Benign essential microscopic hematuria Social History Tobacco Use Types Packs/Day Years [...] 8:00 AM EDT Office Visit Adult Medicine [address] [phone] Essie Brewer PA [address] [place], [place] documented as of this encounter Procedures Procedure Name Priority Date/Time Associated Diagnosis Comments AP OUTSIDE CONSULT Routine 08/27/2024 12 :00 AM EDT Benign essential microscopic hematuria documented in this encounter Results * Anatomic pathology outside consult (08/27/2024 12:00 AM EDT) Final Diagnosis A. Urine, Voided, ([id number]): Negative for high grade urothelial carcinoma. Results of UroVysion fluorescence in situ hybridization (FISH) testing: CEP3: Normal CEP7: Normal CEP17: Normal LSI 9p21: Normal Interpretation: Normal profile Controls stained appropriately. Note: The results are intended as a screening device and should be interpreted in association with other clinical and pathological findings. 09/13/2024 11:23 AM EDT [facility] Clinical Information Benign essential microscopic hematuria R31.1 Urine Cytology/FISH (now) 09/13/2024 11:23 AM EDT [facility] Gross Description A. Urine, Voided, ([id number]): Received one ThinPrep slide for cytology and one ThinPrep slide for UroVysion FISH 09/13/2024 11:23 AM EDT [facility] Disclaimer Unless otherwise specified, all tissue is 10% NB formalin fixed and paraffin embedded. Technical pathology services provided by [facility] [address], [place] [address] (CLIA #[id number]/Denisse Costello MD, Retirement Manager) 09/13/2024 11:23 AM EDT [facility] Tissue Urine specimen from urethra / Unknown 08/27/2024 08/30/2024 3:42 PM EDT us Song Ivan MD LAB PATHOLOGY ORDERAB LES Final Result [facility] [address] [place] [address], documented in this encounter Visit Diagnoses Diagnosis Benign essential microscopic hematuria documented in this encounter Care Teams Slasher Sawyer Relationship Specialty Start Date End Date Sam Carreon MD [address] [place] [address] PCP - General 05/12/22 documented as of this encounter
--- OUTSIDE RECORDS SUMMARY | 2025-01-31 22:25 | XMS_ITS | Encounter Summary ---
Author Organization [facility] Address [address] [place] [address] Care Team Providers Care Geodetic Survey Director Name Role Phone Savannah Rosales MD Primary Care Provider Unavail able Drake Carter MD Primary Care Provider Sam Carreon MD Primary Care Provider Reason for Visit * Reason Onset Date Comments Error 10/23/2018 Encounter Details Date Type Department Care Team Description 10/23/2018 Telephone Adult Medicine [address] [address] Savannah Rosales MD Error Social History Tobacco Use Types Packs/Day Years Used Date Smoking Tobacco: Every Day Cigarettes Smokeless Tobacco: Never Alcohol Use Standard Drinks/Week Comments Yes 0 (1 standard drink = 0.6 oz pur e alcohol) social Sex Assigned at Date Recorded Not on file Job Start Date Occupation Industry Not on file Not on file Not on file documented as of this encounter Miscellaneous Notes * Telephone Encounter - Tejal Martinez - 10/23/2018 9:58 AM EDT documented in this encounter Plan of Treatment Not on file documented as of this encounter Visit Diagnoses Not on filedocumented in this encounter Care Teams Geodetic Survey Director Relationship Specialty Start Date End Date Savannah Rosales MD PCP - General Internal Medicine 04/19/16 05/27/21 Drake Carter MD [address] [place] [phone] PCP - General Internal Medicine 05/28/21 05/11/22 Sam Carreon MD [address] [place] [phone] PCP - General Internal Medicine 05/12/22 documented as of this encounter
--- OUTSIDE RECORDS SUMMARY | 2025-01-31 22:25 | XMS_ITS | Encounter Summary ---
Author Organization [facility] Address [address] [place] [address] Care Team Providers Care Health Assistant Name Role Phone Sam Carreon MD Primary Care Provider Encounter Details Date Type Department Care Team (Late st Contact Info) Description 09/13/[address] [facility] - Main Lab [address] [facility] [place] [address] Song Ivan MD [address] [place] [address] Urinary tract infection, site not specified Social History Tobacco Use Types Packs/Day Years [...] 8:00 AM EDT Office Visit Adult Medicine [address] [phone] Essie Brewer PA [address] [place], [place] documented as of this encounter Procedures Procedure Name Priority Date/Time Associated Diagnosis Comments CULTURE URINE Routine 09/13/2024 10:20 AM EDT Urinary tract infection, site not specified documented in this encounter Results * Culture urine (09/13/2024 10:20 AM EDT) Culture, Urine No growth 09/14/2024 8:44 AM EDT [facility] Urine Urine specimen obtained by clean catch procedure / Unknown 09/13/2024 10:20 AM EDT 09/13/2024 2:20 PM EDT us Song Ivan MD LAB MICROBIOLOGY - NERAL ORDERABLES Final Result [facility] [address] [place] [address], documented in this encounter Visit Diagnoses Diagnosis Urinary tract infection, site not specified documented in this encounter Care Teams Health Assistant Relationship Specialty Start Date End Date Sam Carreon MD [address] [place] [address] PCP - General 05/12/22 documented as of this encounter
--- OUTSIDE RECORDS SUMMARY | 2025-01-31 22:25 | XMS_ITS | Encounter Summary ---
Author Organization [facility] Address [address] [place] [address] Care Team Providers Care Rodent Control Worker Name Role Phone Sam Carreon MD Primary Care Provider Encounter Details Date Type Department Care Team Description 10/26/2022 Telephone Adult Medicine [address] [address] Britney Arnett APRN [address] [place] [id number] Social History Tobacco Use Types Packs/Day Years Used Date Smoking Tobacco: Every Day Cigarettes Smokeless Tobacco: Never Alcohol Use Standard Drinks/Week Comments Yes 0 (1 standard drink = 0.6 oz pur e alcohol) social Sex Assigned at Date Recorded Not on file Job Start Date Occupation Industry Not on file Not on file Not on file COVID-19 Exposure Response Date Recorded In the last 10 days, have yo u been in contact with someone who was confirmed or suspected to have Coronavirus/COVID-19? No / Unsure 10/26/2022 2:48 PM EDT documented as of this encounter Miscellaneous Notes * Telephone Encounter - Grazyna Sargent M.A. - 10/26/2022 3:44 PM EDT Images from the original note were not included. Message left for patient with Urology phone number to contact and schedule an apt ?? 08/11/22 ? Elkin Valle [address] [facility] [address] ? Dear Mr. Valle: ?? You have been referred to [facility] [address], [place] [address] by Drake Carter MD. The order for this referral has been faxed to this specialist's office. ?? If you do not hear from the specialist office listed above to schedule an appointment for you within 5 business days, please contact them at P: [phone]. ? Thank you, ?? Deyma Referrals [employer] [facility] [phone] * Telephone Encounter - Britney Arnett APRN - 10/26/2022 3:20 PM EDT Patient was referred to Urology on 08/09 for kidney stones. He has not received a mail or phone call. Can you please look into this. Thank you documented in this encounter Plan of Treatment Not on file documented as of this encounter Visit Diagnoses Not on filedocumented in this encounter Care Teams Rodent Control Worker Relationship Specialty Start Date End Date Sam Carreon MD [address] [place] [address] PCP - General Internal Medicine 05/12/22 documented as of this encounter
--- OUTSIDE RECORDS SUMMARY | 2025-01-31 22:25 | XMS_ITS | Encounter Summary ---
Author Organization [facility] Address [address] [place] [address] Care Team Providers Care Professional Wrestler Name Role Phone Savannah Rosales MD Primary Care Provider Unavail able Drake Carter MD Primary Care Provider [phone] Sma Carreon MD Primary Care Provider Encounter Details Date Type Department Care Team Description 05/03/2016 Hereditary Cancer Qu iz Results Medical Records [address] [place] [id number] Abstract, Provider Social History Tobacco Use Types Packs/Day Years Used Date Smoking Tobacco: Never Assessed Sex Assigned at Date Recorded Not on file Job Start Date Occupation Industry Not on file Not on file Not on file documented as of this encounter Plan of Treatment Not on file documented as of this encounter Visit Diagnoses Not on filedocumented in this encounter Care Teams Professional Wrestler Relationship Specialty Start Date End Date Savannah Rosales MD PCP - General Internal Medicine 04/19/16 05/27/21 Drake Carter MD [address] [place] [id number] PCP - General Internal Medicine 05/28/21 05/11/22 Sam Carreon MD [address] [place] [address] PCP - General Internal Medicine 05/12/22 documented as of this encounter
--- OUTSIDE RECORDS SUMMARY | 2025-01-31 22:25 | XMS_ITS | Encounter Summary ---
Author Organization [facility] Address [address] [place] [address] Care Team Providers Care Security Incident Response Engineer Name Role Phone Savannah Rosales MD Primary Care Provider Unavail Drake Liz MD Primary Care Provider [phone] Sam Carreon MD Primary Care Provider Reason for Visit * Reason Onset Date Comments Provider Call Back 11/05/2018 Encounter Details Date Type Department Care Team Description 11/05/2018 Telephone Adult Medicine [address] [address] Savannah Rosales MD Provider Call Back Social History Tobacco Use Types Packs/Day Years [...] encounter Miscellaneous Notes * Telephone Encounter - Savannah Rosales MD - 11/05/2018 12:48 PM EDT Will send through [facility] as well * Telephone Encounter - Natalie Pope R.N. - 11/05/2018 12:39 PM EDT Pt and feel that he has no relief, still has pain in his back and leg, he is taking robaxin, prednisone and gabapentin and has no change in the pain, he has no new symptoms, denies any changes in bowel or bladder habits , has no numbness, nl CSM and is ambulatory, states he cannot sleep. He isout of gabapentin and has 4 days left of steroids Please advise * Telephone Encounter - Yolanda Murillo - 11/05/2018 12:25 PM EDT Pt returning call. [phone] * Telephone Encounter - Natalie Pope R.N. - 11/05/2018 9:52 AM EDT Pt was seen by dr villatoro. last visit visit 10/30 Has been using NSAID then to ER ,prescribed percocet , robaxin and prednisone with no effect, was seen here and placed on gabapentin , seen again and thedose of gabapentin was increased and steroids Rx again, I left a message for the patient to return my call. * Telephone Encounter - Raissa Garnett C.M.A. - 11/05/2018 9:00 AM EDT MYRNA 10/30/18, please review and advise * Telephone Encounter - Hilary Tierney - 11/05/2018 8:49 AM EDT Caller requesting call back from provider: Is the caller the patient? NO If caller is not the patient, what is the callers name? Shamek Callers relationship to patient? Patient If person calling is not the patient themselves, is there a verbal release in FYI or permanent comments for this person: YES Reason for call back: Patient has been seen twice for ongoing groin pain into leg. States was prescribed some medications but continues to have a lot of pain. Looking to see if Dr would prescribe something for pain. Caller offered to speak with the nurse for assistance: YES Response: Patient offered to speak with nurse to assist them: refused offer documented in this encounter Plan of Treatment Not on file documented as of this encounter Visit Diagnoses Not on filedocumented in this encounter Care Teams Security Incident Response Engineer Relationship Specialty Start Date End Date Savannah Rosales MD PCP - General Internal Medicine 04/19/16 05/27/21 Drake Carter MD [address] [place] [id number] PCP - General Internal Medicine 05/28/21 05/11/22 Sam Carreon MD [address] [place] [id number] PCP - General Internal Medicine 05/12/22 documented as of this encounter
[2025-01-31 22:45] VITALS: BP 98/59; PULSE 73; RESP 15; TEMP 36.5; O2SAT 99
--- NOTE | 2025-01-31 23:17 | ED.ABDPAIN ---
HPI - Abdominal Pain General Chief Complaint: Abdominal Pain Stated Complaint: abdominal and groin pain, one month post op Time Seen by Provider: 01/31/25 22:43 Source: patient Mode of arrival: ambulatory Limitations: no limitations History of Present Illness HPI narrative: This is a 44 years old male presented to the emergency department with a chief complaint of left flank pain radiated to the left groin, symptoms have been going on on and off for about a week he has pain in the left testicle. He has a history of left kidney tumor with was removed December 2024 MD elicited complaint: flank pain Pertinent past history: none Pain Consistency: constant Location: L flank Severity: moderate Quality: cramping Radiation: none Migration to: no migration Exacerbating factors: nothing Relieving factors: nothing Related Data Previous Rx's ?Medication ?Instructions ?Recorded cyclobenzaprine 5 mg tablet 5 mg PO TID PRN back pain 7 days 08/09/23 #21 tabs prednisone 20 mg tablet 20 mg PO DAILY 7 days #7 tabs 08/09/23 ondansetron 4 mg disintegrating 4 mg PO Q6H PRN nausea and 12/06/24 tablet vomiting #10 tabs oxycodone 5 mg tablet 5 mg PO Q6H PRN pain #14 tabs 12/06/24 polyethylene glycol 3350 17 17 g PO DAILY #238 grams 12/06/24 gram/dose oral powder (Miralax) oxycodone 5 mg tablet 5 mg PO Q6H PRN pain #12 tabs 02/01/25 Allergies Allergy/AdvReac Type Severity Reaction Status Date / Time No Known Allergies Allergy Verified 01/31/25 21:04 Review of Systems Constitutional: Reports no additional constitutional complaints Reports system reviewed and no additional complaints, except as documented Cardiovascular: Reports no additional cardiovascular complaints [facility] Past Medical History Attestation statement: The following information was validated with the patient. [facility] Narrative: Renal cell CA in the left status post tumor removal Medical History No known health problems Social History Social History Smoked in Last 30 Days: Yes Use of substances other than those prescribed or required for medical reasons: Yes Substance Use Type: Marijuana Substance Use Frequency: Chronic Longstanding Last Used Substance: Just Prior to Admission Any prior treatment program specific to substance use: No Advance Directives: No Advance Directives Information Provided: No Physical Exam ED Exam Exam: No acute distress comfortable in the stretcher Vital Signs: Vital Signs - 24 hr 01/31/25 21:00 01/31/25 22:45 02/01/25 00:00 Temperature 98.4 F 97.7 F Pulse Rate 97 73 83 Respiratory Rate 20 15 20 Blood Pressure 133/67 98/59 L 117/74 Pulse Oximetry 100 99 98 Oxygen Delivery Method Room Air Room Air Room Air BMI result Body Mass Index 28.2 Const General: cooperative Nutritional Appearance: average body habitus Orientation/consciousness: patient oriented x3 Limitations: no limitations HENMT Head: Yes normal to inspection General nose exam: Normal external nose present Face and sinus: Yes normal facial exam Mouth: Normal oral and palatal mucosa present Teeth and gingiva: dentition normal Neck Neck: Yes normal visual inspection Chest Chest palpation & inspection: normal inspection of the chest Resp Effort & Inspection: normal respiratory effort Auscultation: clear to auscultation bilaterally Cardio Jugular venous distension: no JVD Rate: regular rate Rhythm: regular rhythm GI Inspection: Yes normal to inspection Palpation (GI): Soft to palpation Skin General skin exam: no rashes or lesions noted and elasticity normal Lesions: no lesions Rashes: no rashes Trauma: no lacerations or abrasions Neuro General: patient oriented x3 Course Reevaluation(s) Reevaluation #1: Workup is now completed ultrasound shows no torsion, UA shows no evidence of infection he has a few red cells CT scan shows a mild hydro in the left but no evidence of kidney stones. At this point I think the patient can be discharged safely at home he is comfortable with the plan of care Time: 01:15 Medical Decision Making Medical Decision Making MDM Narrative: Patient is here complaining of flank pain we will obtain CT and UA Differential Diagnosis Differential Diagnoses: The differential diagnosis associated with the presentation includes Kidney stone/UTI/musculoskeletal pain Admission/Observation Consideration of admission/observation: Escalation of care including admission/observation considered Lab Data [facility] Lab Attestation statement: I reviewed the patient's lab results. 01/31/25 21:09 01/31/25 21:09 Labs: Lab Results 01/31/25 01/31/25 Range/Units 21:09 23:40 WBC 12.1 H (4.8-10.8) X10*3/uL RBC 4.45 L (4.60-5.80) X10*6/uL Hgb 13.5 L (14.0-18.0) g/dl Hct 41.9 L (42.0-52.0) % MCV 94.2 (80.0-98.0) fL MCH 30.3 (27.0-33.0) pg MCHC 32.2 (31.0-36.0) g/dl RDW 13.7 (11.0-16.0) % Plt Count 347 D (160-400) X10*3/uL MPV 9.3 L (9.4-12.4) fL Immature Gran % (Auto) 0.3 (0.0-0.4) % Neut % (Auto) 56.0 (45-73) % Lymph % (Auto) 31.6 (20-40) % [place]oup % (Auto) 7.5 (2-11) % Eos % (Auto) 3.5 (0-4) % Baso % (Auto) 1.1 (0-2) % Lymph # (Auto) 3.8 (1.2-4.9) X10*3/uL [place]oup # (Auto) 0.9 (0.1-1.2) X10*3/uL Eos # (Auto) 0.4 (0.0-0.4) X10*3/uL Baso # (Auto) 0.1 (0.0-0.2) X10*3/uL Abs Immat Gran (auto) 0.04 H (0.00-0.03) X10*3/uL Absolute Neuts (auto) 6.8 (2.0-8.3) x10*3/uL Absolute Nucleated RBC 0.000 (0.0-0.012) X10*3/uL Nucleated RBC % (auto) 0.0 (0.0-0.2) /100WBC Sodium 140 (135-145) mmol/L Potassium 4.6 (3.3-5.1) mmol/L Chloride 107 (96-108) mmol/L Carbon Dioxide 27 (22-29) mmol/L Anion Gap 11 L (12-20) BUN 16 (9-16) mg/dL Creatinine 1.35 (0.5-1.4) mg/dL Estim Creat Clear Calc 69.9 Estimated GFR 57 Random Glucose 115 (60-115) mg/dL Calcium 9.4 (8.4-10.2) mg/dL Total Bilirubin 0.1 (0.0-1.0) mg/dL AST 15 (5-37) U/L ALT 21 (0-40) U/L Alkaline Phosphatase 71 (39-117) U/L Total Protein 7.6 (6.5-8.0) g/dL Albumin 4.6 (3.5-5.0) g/dL Lipase 54 (8-78) U/L Urine Color Yellow Urine Appearance Clear Urine pH 6.0 (5.0-9.0) Ur Specific [place] 1.020 (1.005-1.025) Urine Protein Negative (Neg-Trace) mg/dL Urine Glucose (UA) Negative (Negative) mg/dL Urine Ketones Negative (Negative) mg/dL Urine Blood Moderate (2+) H (Negative) Urine Nitrite Negative (Negative) Ur Leukocyte Esterase Negative (Negative) Urine RBC 11-20 H (0-2) /HPF Urine WBC 0-5 (0-5) /HPF Ur Squamous Epith Cells 0-2 (0-2) /HPF Urine Bacteria None Seen (None Seen) Hyaline Casts 0-2 (0-2) /LPF Independent Interpretation I performed an independent interpretation of an: CT Scan Interpretation: Left hydro Radiology Impression Discussion of test interpretation with radiology: I have reviewed the radiologist's reading. Radiologist Impression: CT pelvis: Appendix is normal. Skug-yn-tmaducqu stool throughout the colon. No colonic wall thickening. Urinary bladder is moderately distended. No bladder calculi. IMPRESSION: 1. Mild left hydronephrosis with left perinephric stranding. No stones are seen within the left kidney or left ureter. Therefore, this may be related to recent passage of a calculus or ascending urinary tract infection. Clinical correlation advised. 2. Nonobstructing right renal calculi. This document has been electronically signed by: Isiah Hardin MD on 02/01/2025 00:12:36 Dictated By: Isiah Hardin MD Signed By: <Electronically signed by Isiah Hardin MD in OV> Prescription Management I considered prescription management with: Pain Medication Chronic Conditions Renal cell CA Discharge Plan Discharge Clinical Impression: Acute left flank pain Patient Disposition: Home, Self-Care Instructions: Flank Pain (ED) Additional Instructions: Please follow-up with your urologist call Monday and make an appointment return to the emergency room if you worse if you have a fever or vomiting Prescriptions: New oxycodone 5 mg tablet 5 mg PO Q6H PRN (Reason: pain) Qty: 12 0RF Rx Instructions: partial filing upon pt request; Partial Fill upon patient request. No Action cyclobenzaprine 5 mg tablet 5 mg PO TID PRN (Reason: back pain) 7 Days Qty: 21 0RF prednisone 20 mg tablet 20 mg PO DAILY 7 Days Qty: 7 0RF ondansetron 4 mg tablet,disintegrating 4 mg PO Q6H PRN (Reason: nausea and vomiting) Qty: 10 0RF oxycodone 5 mg tablet 5 mg PO Q6H PRN (Reason: pain) Qty: 14 0RF Rx Instructions: Partial Fill upon patient request. polyethylene glycol 3350 [Miralax] 17 gram/dose powder 17 g PO DAILY Qty: 238 0RF Print Language: South Korean
--- NOTE | 2025-01-31 23:40 | PC.NURSE ---
assumed care of pt from prior RN
[2025-01-31 23:55] LABS: Appearance Urine Clear; Glucose Urine UA Negative (Negative); PH 6.0 (5.0-9.0); Specific Gravity - Urine 1.020 (1.005-1.025); UMIC TRIGGER UACC YES
[2025-02-01] VITALS: BP 117/74; PULSE 83; RESP 20; O2SAT 98
--- NOTE | 2025-02-01 01:33 | PC.NURSE ---
reviewed discharge instructions with pt. pt verbalized understanding, no sign of distress.
[2025-02-01 01:35] VITALS: BP 117/74; PULSE 83; RESP 20; TEMP 36.1; O2SAT 98
== END 2025-02-01 01:36 | disposition home or self-care (01) ==
PROVIDERS: Emergency Provider Emergency Medicine
DX: R10.32 Left lower quadrant pain (principal); N50.812 Left testicular pain; R10.20 Pelvic and perineal pain unspecified side; Z79.899 Other long term (current) drug therapy
CPT/HCPCS: 36415; 74176; 76870; 80053; 81001; 83690; 85025; 93975; 99284

== ENCOUNTER → 2025-01-31 23:08 | Outpatient (BNV) | payer OTHER, SELFPAY | PROVIDERS: Emergency Provider Emergency Medicine; Visit Provider Radiology Diagnostic Radiology | DX: N13.2 Hydronephrosis with renal and ureteral calculous obstruction (principal); N50.812 Left testicular pain | CPT/HCPCS: 74176; 76870 ==

== ENCOUNTER → 2025-02-01 00:05 | Outpatient (BNV) | payer OTHER, SELFPAY | PROVIDERS: Emergency Provider Emergency Medicine; Visit Provider Radiology Diagnostic Radiology | DX: N50.812 Left testicular pain (principal) | CPT/HCPCS: 93975 ==